=== PATIENT | male | born 1995 | race Caucasian/White ===

== ENCOUNTER → 2019-07-09 09:35 | Outpatient (CLI) | payer OTHER, SELFPAY ==
[2019-07-09 11:17] LABS: Rheumatoid Factor < 8.6 IU/mL (<12.0)
[2019-07-11 14:16] LABS: RPR Screen Nonreactive (Nonreactive)
[2019-07-11 15:22] LABS: Angiotensin Converting Enzyme 33 U/L (9-67)
[2019-07-12 20:47] LABS: ANA Screen, IFA NEGATIVE (NEGATIVE)
== END ==
PROVIDERS: Visit Provider Ophthalmology
DX: H20.9 Unspecified iridocyclitis (principal)
CPT/HCPCS: 36415; 82164; 86038; 86430; 86592; 86780

== ENCOUNTER → 2019-09-17 09:22 | Outpatient (CLI) | payer OTHER, SELFPAY ==
[2019-09-19 14:20] LABS: HLA B27 NEGATIVE (Negative)
== END ==
PROVIDERS: PCP Ophthalmology; Visit Provider Ophthalmology
DX: H20.9 Unspecified iridocyclitis (principal)
CPT/HCPCS: 36415; 81374